=== PATIENT | female | born 1930 | race Caucasian/White ===

== ENCOUNTER → 2017-10-23 | Outpatient (CLI) | payer MEDICARE, OTHER ==
--- NOTE | 2017-10-18 13:52 | MH ---
cc: EMMETT DELEON DATE OF ADMISSION: 10/23/2017 ADMISSION DIAGNOSIS Cloudy posterior capsule, left eye. HISTORY OF PRESENT ILLNESS This 87-year-old white female is coming through [facility] for the purpose of a YAG laser posterior capsulotomy of the left eye. She is status post cataract surgery in the left eye in the past and has done well postoperatively but now notices decreasing acuity, was found to have a cloudy posterior capsule in the left eye and elected to have a YAG laser posterior capsulotomy at this time. PAST MEDICAL HISTORY The patient has a history of: 1. Hypertension. 2. Cholesterol problems. 3. Ulcers. 4. 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 PAST SURGICAL HISTORY Past surgical history includes: 1. Right hip replacement. 2. Cataract surgery in the left eye. 3. Laser surgery in her right eye for retinal problems. MEDICATIONS Daily medications include: 1. Losartan. 2. Pravastatin. 3. B12. 4. Aleve p.r.n. ALLERGIES She is allergic to ASPIRIN, IBUPROFEN GIVES HER ULCERS, NAPROSYN, CODEINE AND SULFA. FAMILY HISTORY Noncontributory. REVIEW OF SYSTEMS Noncontributory. OCULAR EXAM: The patient's best corrected visual acuity is 20/30 in the right eye and 20/50 in the left. Visual calles are full to confrontation testing. Extraocular muscle exam reveals full versions with orthophoria at distance and near. Pupils are 3 mm equal, round, reactive to light without afferent defect. Anterior segment examination reveals nuclear sclerotic and cortical cataract changes in the right eye. There is a posterior chamber intraocular lens in place in the left eye with a cloudy posterior capsule. The intraocular pressure is 14 in each eye by applanation tonometry. Dilated fundus exam reveals sharp disks with cup-to-disk ratio 0.4 bilaterally. In the macula there are drusen and retinal pigment epithelial changes bilaterally. Old retinal laser scars are noted superotemporally in the right eye. A posterior vitreous detachment is present bilaterally. IMPRESSION 1. Cloudy posterior capsule, left eye. 2. Pseudophakia, left eye. 3. Cataract, right eye. 4. Status post laser for retinal tear, right eye. 5. Macular degeneration. 6. Posterior vitreous detachment, both eyes. PLAN The plan is YAG laser posterior capsulotomy of the left eye through [facility]. MD SMITA Azul /1:28 PM /1:45 PM
[~2017-10-23] MED LIST: ADVA250A INH; B COTAB3 PO; BALANCED SALT SOLN OPHT IRRIG 15 ML BTL ONE; FISH1000 PO; FLUOROMETHOLONE 0.25% OPHT SUSP 5 ML BTL LEFT EYE ONE; PHENYLEPHRINE HCL 2.5% OPTH SOLN 2 ML BTL ONE; PROPARACAINE HCL 0.5% OPHT SOLN 15 ML BTL ONE; RED YEAST PO; TAB-TAB PO; TROPICAMIDE 1% OPHT SOLN 15 ML BTL ONE
--- NOTE | 2017-10-23 13:06 | MP ---
cc: EMMETT THOMAS M.D. DATE OF SURGERY 10/23/2017 PREOPERATIVE DIAGNOSIS Cloudy posterior capsule left eye. POSTOPERATIVE DIAGNOSIS Cloudy posterior capsule left eye. OPERATION YAG laser posterior capsulotomy, left eye. SURGEON Emmett Thomas MD ANESTHESIA Topical COMPLICATIONS None INDICATIONS See history and physical previously dictated. PROCEDURE The patient arrived at [facility]. Blood pressure was 114/68, pulse 84, respirations 18. A drop of Alphagan P and Mydriacyl were instilled in the left eye. The patient was seated at the YAG laser. A drop of Alcaine was instilled in the left eye and a YAG laser posterior capsulotomy lens was placed on the anterior surface of the left cornea. YAG laser posterior capsulotomy was carried out utilizing 147 exposures of 1.5 millijoules. An adequate opening was seen following the procedure. A drop of Alphagan P was instilled topically. The patient was given a prescription for a topical steroid to be used four times per day and has an appointment for follow up on the first postoperative day in my office. The patient left the [facility] in satisfactory condition. MD SHAR Azul/CAROL /11:46 AM /1:06 PM .6
== END ==
LOC: PHSDC 09:56
PROVIDERS: ATTEND Ophthalmology
DX: H26.492 Other secondary cataract, left eye (principal); H43.813 Vitreous degeneration, bilateral; H35.30 Unspecified macular degeneration; Z96.1 Presence of intraocular lens; I10 Essential (primary) hypertension; Z96.641 Presence of right artificial hip joint